=== PATIENT | male | born 1945 | race Caucasian/White ===

== ENCOUNTER 2017-01-06 10:16 | Outpatient (CLI) | payer MEDICARE ==
--- NOTE | 2017-01-06 11:04 | RAD ---
TWO VIEWS CHEST: COMPARISON: None. HISTORY: Cough for 1 month. FINDINGS: Two views of the chest show normal sized cardiomediastinal silhouette. There is no evidence of conso lidation, mass, or pleural effusion. Degenerative changes are seen in the spine. IMPRESSION: No evidence of acute cardiopulmonary disease. POS: [facility]
== END 2017-01-06 10:17 | disposition home or self-care (01) ==
LOC: NAV RAD 10:16
PROVIDERS: ATTEND Internal Medicine
DX: R05 Cough (principal)
CPT/HCPCS: 71020